=== PATIENT | female | born 1975 | race Caucasian/White ===

== ENCOUNTER 2023-05-31 16:15 | Emergency (ER) | payer BC, SELFPAY ==
[2023-05-31] VITALS (7 sets, daily range): BP systolic 96–122; BP diastolic 48–79; PULSE 51–59; RESP 18; TEMP 36.6; O2SAT 93–97; BMI 37.1
[2023-05-31 17:10] LABS: Basophils Absolute Auto 0.04 K/uL (0.00-0.30); Basophils Percent Auto 0.5 % (0.0-3.0); Eosinophils Absolute Auto 0.15 K/uL (0.00-0.50); Eosinophils Percent Auto 1.7 % (0.0-7.0); Hematocrit 38.8 % (33.0-51.0); Hemoglobin* 12.5 gm/dL (12.0-16.0); Immature Granulocytes Abs Auto 0.01 K/uL (0.00-0.30); Immature Granulocytes Pct Auto 0.1 %; Lymphocytes Percent Auto 15.8 % (20-44); Mean Corpuscular HGB Conc 32 gm/dL (32-36); Mean Corpuscular Hemoglobin 26 pg (26-34); Mean Corpuscular Volume 80 fL (80-100); Monocytes Percent Auto 7.4 % (0.0-11.0); Neutrophils Percent Auto 74.5 % (42.0-72.0); Platelet Count* 267 K/uL (140-440); RDW Coefficient of Variation % 14.8 % (11.5-15.5); Red Blood Count 4.86 m/uL (4.00-5.20); White Blood Count* 8.82 K/uL (4.50-11.00)
[2023-05-31 17:13] LABS: Slide Review Reflex No
[2023-05-31] MEDS: METOCLOPRAMIDE HCL 5 MG/ML INJ 10 MG IVP (17:14)
[2023-05-31] MEDS: diphenhydrAMINE 50 MG/ML inj 25 MG IVP (17:14)
[2023-05-31] MEDS: KETOROLAC 15 MG/ML inj IVP (17:14)
--- NOTE | 2023-05-31 17:21 | ED.GENADULT ---
HPI - General Adult General Date Seen: 05/31/23 Chief complaint: Dizziness/Vertigo Stated complaint: Vertigo, dizziness Time Seen by Provider: 05/31/23 16:33 Source: patient Mode of arrival: ambulatory Limitations: no limitations History of Present Illness HPI narrative: Patient is a 47-year-old female with no pertinent medical problems presents emergency department for sudden onset of dizziness that occurred about 14:30 today. 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 She states she has never had symptoms like this before. She says she started developing worsening headache that she says feels like a tension headache and her legs felt weak. States it is very difficult to concentrate throughout this. 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 Patient states she was told probably has vertigo. Patient states now the dizziness has for the most part resolved but occasionally gets worse when she turns her eyes to the right or rotates her head to the right. She still feels difficulty concentrating and has a headache that she says starts the for the wraps around her head. Has not been on any blood thinners denies any trauma to her head. She does states her legs felt weak initially also but they are feeling better. Denies fevers, chills, chest pain, shortness of breath, abdominal pain. Does states she 1 episode of emesis in triage that occurred in and dizziness was worse. She said it felt like the room was spinning at that time. Related Data Home Medications Medication Instructions Recorded Confirmed bupropion HCl 150 mg 24 hr tablet, 150 mg PO QAM 05/31/23 05/31/23 extended release fluoxetine 20 mg capsule 20 mg PO DAILY 05/31/23 05/31/23 iron bioglyside 1 tab PO DAILY 05/31/23 05/31/23 levothyroxine 100 mcg tablet 100 mcg PO DAILY 05/31/23 05/31/23 Previous Rx's Medication Instructions Recorded ondansetron 4 mg disintegrating 4 mg PO Q6H #20 tabs 05/31/23 tablet Allergies Allergy/AdvReac Type Severity Reaction Status Date / Time Penicillins Allergy Severe Anaphylaxis Verified 05/31/23 16:30 Review of Systems Status of ROS: Reports: 10 or more systems reviewed and unremarkable except as noted in History and below PFSH PFSH Social History Smoking Status: Never smoker How often do you have a drink containing alcohol: 4 or more times a week How many standard drinks containing alcohol do you have on a typical day: 1 or 2 AUDIT-C Alcohol total score: 4 Non-prescribed substance use: denies use Exam Narrative: Exam Narrative: Const: Well-nourished, Well-developed, in mild distress Eyes: PERRL, no conjunctival injection, and symmetrical lids HENT: Atraumatic external nose and ears. Moist mucous membranes. Neck: Symmetric, trachea midline, No thyromegaly. CVS: RRR, No murmurs or gallops. Peripheral pulses 2+ and equal in all extremities RESP: Unlabored respiratory effort. Clear to auscultation bilaterally. GI: Nontender/Nondistended, No rebound or guarding. MSK:Extremities w/o deformity, Normal Active ROM Skin: Warm, Dry. No rashes or lesions. Neuro: Normal Muscle tone, No focal neurological deficits. Psych: Awake, Alert, & Oriented x3. Appropriate mood and affect. Const: Vital Signs, click to edit/add: Vital Signs - 24 hr 05/31/23 16:24 05/31/23 17:44 05/31/23 18:00 Temperature 97.9 F Pulse Rate 51 L 52 L Pulse Rate [Left P ulse Oximeter] 59 L Respiratory Rate 18 Blood Pressure Blood Pressure [Ri ght Upper Arm] 122/79 Pulse Oximetry 97 93 93 Oxygen Delivery Me thod Room Air 05/31/23 18:01 05/31/23 18:02 05/31/23 18:30 Temperature Pulse Rate 52 L 52 L 57 L Pulse Rate [Left P ulse Oximeter] Respiratory Rate Blood Pressure 107/67 Blood Pressure [Ri ght Upper Arm] Pulse Oximetry 94 94 97 Oxygen Delivery Me thod 05/31/23 18:32 Temperature Pulse Rate 54 L Pulse Rate [Left P ulse Oximeter] Respiratory Rate Blood Pressure 96/48 L Blood Pressure [Ri ght Upper Arm] Pulse Oximetry 95 Oxygen Delivery Me thod Course Vital Signs Vital signs: Initial Vital Signs Temperature 97.9 F 05/31/23 16:24 Temperature Source Temporal Artery Scan 05/31/23 16:24 Pulse Rate 59 L 05/31/23 16:24 Respiratory Rate 18 05/31/23 16:24 Blood Pressure 122/79 05/31/23 16:24 Blood Pressure Mean 93 05/31/23 16:24 Blood Pressure Position Sitting 05/31/23 16:24 Pulse Oximetry 97 05/31/23 16:24 Oxygen Delivery Method Room Air 05/31/23 16:24 Vital Signs Temperature 97.9 F 05/31/23 16:24 Pulse Rate 59 L 05/31/23 16:24 Respiratory Rate 18 05/31/23 16:24 Blood Pressure 122/79 05/31/23 16:24 Pulse Oximetry 97 05/31/23 16:24 Oxygen Delivery Method Room Air 05/31/23 16:24 Temperature 97.9 F 05/31/23 16:24 Pulse Rate 54 L 05/31/23 18:32 Respiratory Rate 18 05/31/23 16:24 Blood Pressure 96/48 L 05/31/23 18:32 Pulse Oximetry 95 05/31/23 18:32 Oxygen Delivery Method Room Air 05/31/23 16:24 Medical Decision Making MDM Narrative Medical decision making narrative: Patient is a 47-year-old female presented emergency department for did dizziness, lightheadedness, lower extremity weakness. She states the dizziness started 1st and 3rd happened suddenly. That has since resolved now she is having headache and just feels weak and fatigued with her legs feeling very heavy. She has never had symptoms like this before. I would consider doing a head CT of her concerning her vague diffuse symptoms. I spoke to her about this and at this time she would rather be treated for the headache and see if she gets better before she just the CT scan as she is not want the radiation. Considering her age and no other risk factors a stroke seems unlikely at this time not believe head imaging is necessary and this seems reasonable. I did order CBC, coal with a screw, magnesium, troponin, BMP. Give her Toradol for headache along with a migraine cocktail. Lab work all returned showing no concerning abnormalities. COVID flu negative. Electrolytes within normal limits. No signs of infection at this time. After the medication patient's symptoms resolved and she is feeling much better at this time. I think most likely she had vertigo that resolved on its own but the vertigo causes developed had headache which led to the rest of her symptoms. EKG did show bradycardia. She states arteries using the 60s. She is not having a syncopal like feeling not believe this needs to be her workup today. I informed as she has today for concerns of of her bradycardia to follow up with primary care provider. No the headache is resolved she is doing well on giving discharged home. She is agreeable to this plan. Lab Data Labs: Lab Results 05/31/23 Range/Units 17:00 WBC 8.82 (4.50-11.00) K/uL RBC 4.86 (4.00-5.20) m/uL Hgb 12.5 (12.0-16.0) gm/dL Hct 38.8 (33.0-51.0) % MCV 80 (80-100) fL MCH 26 (26-34) pg MCHC 32 (32-36) gm/dL RDW Coeff of Kristine 14.8 (11.5-15.5) % Plt Count 267 (140-440) K/uL Neut % (Auto) 74.5 H (42.0-72.0) % Lymph % (Auto) 15.8 L (20-44) % [place] % (Auto) 7.4 (0.0-11.0) % Eos % (Auto) 1.7 (0.0-7.0) % Baso % (Auto) 0.5 (0.0-3.0) % Neut # (Auto) 6.60 (1.7-7.0) K/uL Lymph # (Auto) 1.40 (0.90-2.90) K/uL [place] # (Auto) 0.70 (0.00-0.90) K/UL Eos # (Auto) 0.15 (0.00-0.50) K/uL Baso # (Auto) 0.04 (0.00-0.30) K/uL Abs Immat Gran (auto) 0.01 (0.00-0.30) K/uL Imm/Tot Granulo (auto) 0.1 % Sodium 138 (135-149) mmol/L Potassium 4.0 (3.6-5.1) mmol/L Chloride 103 (96-114) mmol/L Carbon Dioxide 27 (20-32) mmol/L Anion Gap 8 (7-15) mEq/L BUN 15 (5-24) mg/dL Creatinine 1.0 (0.5-1.5) mg/dL Estimated Creat Clear 66.51 Estimated GFR 71 ml/min Glucose 96 (60-115) mg/dL Calcium 9.6 (8.4-10.6) mg/dL Magnesium 2.0 (1.5-2.6) mg/dL Troponin I < 0.01 L (0.01-0.04) ng/mL SARS-CoV-2 (PCR) Negative SARS-CoV-2 (Negative) Influenza Type A (PCR) Negative PCR FLU A (Negative) Influenza Type B (PCR) Negative PCR FLU B (Negative) ECG Data Attestation: I personally reviewed and interpreted this ECG as follows: Prior ECG tracings: not available for review Interpretation: Sinus bradycardia return for the headache, normal intervals, normal axis, no ST or T-wave abnormalities Discharge Plan Discharge Clinical Impression: Vertigo Headache Qualifiers: Headache type: tension-type Headache chronicity pattern: acute headache Intractability: not intractable Qualified Code(s): G44.209 - Tension-type headache, unspecified, not intractable Patient Disposition: Home, Self-Care Condition: Stable Instructions: Dizziness (ED) Additional Instructions: Follow-up with the primary care provider if he continued to have similar symptoms. Can also return emergency department for new or worsening symptoms. You do have a slow heart rate, called bradycardia, as long as your not passing out this is not something needs to be addressed unless she becomes symptomatic. Prescriptions: New ondansetron 4 mg tablet,disintegrating 4 mg PO Q6H Qty: 20 0RF No Action levothyroxine 100 mcg tablet 100 mcg PO DAILY fluoxetine 20 mg capsule 20 mg PO DAILY bupropion HCl 150 mg tablet extended release 24 hr 150 mg PO QAM iron bioglyside 1 tab PO DAILY Follow Up/Referrals: Shama Meza MD [Primary Care Provider] - Stand Alone Forms: [facility] Info Instructions
[2023-05-31 17:22] LABS: Chloride* 103 mmol/L (96-114)
[2023-05-31 17:23] LABS: Sodium* 138 mmol/L (135-149)
[2023-05-31 17:25] LABS: Est. Creatinine Clearance* 66.51; Estimated Glomerular Filt Rate 71 ml/min
[2023-05-31 17:26] LABS: Anion Gap 8 mEq/L (7-15); Blood Urea Nitrogen* 15 mg/dL (5-24); Calcium* 9.6 mg/dL (8.4-10.6); Carbon Dioxide* 27 mmol/L (20-32); Glucose* 96 mg/dL (60-115)
[2023-05-31] MEDS: LACTATED RINGERS 1000 ML 1,000 ML IV (17:41)
[2023-05-31 17:42] LABS: PCR FLU A Negative PCR FLU A (Negative); PCR FLU B Negative PCR FLU B (Negative)
[2023-05-31 17:49] LABS: Troponin I* < 0.01 ng/mL (0.01-0.04)
[2023-05-31 17:52] LABS: SARS PCR* Negative SARS-CoV-2 (Negative)
--- NOTE | 2023-05-31 18:44 | ED.NURSE ---
pt feeling much better, able to walk to bathroom independent.
== END 2023-05-31 19:13 | disposition home or self-care (01) ==
PROVIDERS: Emergency Provider Student in an Organized Health Care Education/Training Program; PCP Family Medicine
DX: R42 Dizziness and giddiness (principal)
CPT/HCPCS: 36415; 80048; 83735; 84484; 85025; 87631; 93005; 96374; 96375; 99283; 99284; J1200; J1885; J2765; J7120